=== PATIENT | male | born 1970 | race African-American/Black ===

== ENCOUNTER 2017-03-21 19:45 | Emergency (ER) | payer BC, SELFPAY ==
[2017-03-21] MEDS ORDERED: predniSONE 20 MG TAB ONE (19:56)
== END 2017-03-21 20:59 | disposition home or self-care (01) ==
LOC: ERS 19:45
DX: J45.901 Unspecified asthma with (acute) exacerbation (principal)
CPT/HCPCS: 94640; J7506; J7620

== ENCOUNTER 2017-05-26 15:31 | Emergency (ER) | payer SELFPAY ==
[2017-05-26] MEDS ORDERED: Albuterol Sulfate 2.5 mg/3 ml Neb ONE (16:24)
--- NOTE | 2017-05-26 16:48 | RAD ---
AP VIEW CHEST: Date: 05/26/17 INDICATION: Cough and wheezing for 5 days. COMPARISON: Prior exam dated 09/15/12. FINDINGS: Lungs are clear. Cardiomediastinal silhouette is within normal limits. No acute osseous abnormality i s evident. IMPRESSION: No acute cardiopulmonary abnormality. POS: [facility]
[2017-05-26] MEDS ORDERED: Magnesium Sulfate 2 GM/100 ML BAG ONE (17:32)
[2017-05-26] MEDS ORDERED: Dexamethasone 4 mg/ml Vial ONE (17:32)
== END 2017-05-26 17:55 | disposition home or self-care (01) ==
LOC: ERS 15:31
DX: J45.901 Unspecified asthma with (acute) exacerbation (principal)
CPT/HCPCS: 71045; 94644; 94760; 96365; 96375; J1100; J3475; J7611; J7620

== ENCOUNTER 2017-12-24 17:42 | Emergency (ER) | payer OTHER, SELFPAY ==
[2017-12-24] MEDS ORDERED: predniSONE 20 MG TAB ONE (20:57)
--- NOTE | 2017-12-24 20:59 | RAD ---
TWO VIEWS CHEST: 12/24/17 HISTORY: Dyspnea. PA and lateral views of the chest is obtained. The lungs are well aerated. No evidence of active intrathoracic disease seen. No evidence of effusion s, pneumonia or pneumothorax seen. IMPRESSION: Normal two views chest. POS: [facility]
[2017-12-24] MEDS ORDERED: Azithromycin 250 MG TAB ONE (22:28)
[2017-12-24] MEDS ORDERED: cefTRIAXone\\ROCEPHIN 250 MG VIAL ONE (22:28)
[2017-12-24] MEDS ORDERED: Lidocaine 1% PF 5 ML VIAL ONE (22:29)
== END 2017-12-24 22:50 | disposition home or self-care (01) ==
LOC: ERS 17:42
DX: J45.901 Unspecified asthma with (acute) exacerbation (principal); Z79.899 Other long term (current) drug therapy
CPT/HCPCS: 71046; 94640; 96372; J0696; J2001; J7506; J7620